=== PATIENT | female | born 1975 | race Caucasian/White ===

== ENCOUNTER → 2016-09-01 | Outpatient (CLI) | payer BC, OTHER | LOC: MC.RAD 09:31 | DX: Z12.31 Encounter for screening mammogram for malignant neoplasm of breast (principal) ==

== ENCOUNTER → 2017-03-05 | Outpatient (CLI) | payer BC, OTHER | LOC: COL.RAD 12:30 | DX: M47.22 Other spondylosis with radiculopathy, cervical region (principal); M48.02 Spinal stenosis, cervical region; M47.23 Other spondylosis with radiculopathy, cervicothoracic region; M48.03 Spinal stenosis, cervicothoracic region; M89.29 Other disorders of bone development and growth, multiple sites; M51.17 Intervertebral disc disorders with radiculopathy, lumbosacral region; M51.14 Intervertebral disc disorders with radiculopathy, thoracic region; M48.04 Spinal stenosis, thoracic region; G89.29 Other chronic pain ==

== ENCOUNTER → 2018-11-25 | Outpatient (CLI) | payer OTHER | LOC: MC.RAD 09:30 | DX: Z12.31 Encounter for screening mammogram for malignant neoplasm of breast (principal) ==